=== PATIENT | male | born 1945 | race Caucasian/White ===

== ENCOUNTER → 2016-12-27 | Outpatient (CLI) | payer BC ==
[~2016-12-27] MED LIST: BIAXIN PO; LORTAB 10/500 T1 TAB PO; RONDEC-DM ORAL30 ML PO
--- NOTE | ~2016-12-27 | MR113 ---
[facility] A Service of [facility] RADIOLOGY TEXT RESULTS PATIENT: LEONEL TAVAREZ LOCATION: [facility] : 41 UNIT #: [id number] AGE: [address]: Yumi Bradley SEX: M ORDER DR: [id number] [address] [address] [id number] MR#: [id number] Acc #: [id number] NAME: LEONEL TAVAREZ : 1945 SEX: M STUDY DATE/TIME: 12/27/2016 12:04 UNIT: [facility] ROOM: STUDY DESCRIPTION: MR Lumbar Wo Contrast Attending Physician: Yumi Bradley M.D. Referring Physician: Yumi Bradley M.D. Ordering Physician: Jose F Clark M.D. Primary Care Physician: Yumi Bradley M.D. MRI CENTER REPORT This report is preliminary unless electronic signature is present. EXAM MRI of the lumbar spine without contrast dated 12/27/2016. COMPARISON Plain films lumbar spine dated 12/18/2016. HISTORY Low back pain since 12/27/2016. Injured while lifting heavy hand. Patient fell on 12/15/2016 with pain in his hips. FINDINGS Multisequence multiplanar imaging of the lumbar spine was obtained without contrast. Edema is associated with L2 fracture. There is about 10% maximal vertebral body height loss. Chronic compression fracture is seen at L5 with maximum vertebral body height loss in the mid to vertebral body with overall decreased height also. There is at least 60-65% maximal compression in the mid aspect. No significant edema is associated with it favoring chronic fracture. There is mild vertebral body height loss at L4 with about 10-20% maximal height loss. No fracture line or edema is seen. There is a developing inferior endplate Schmorl node along the L1 and to a lesser degree L3 vertebral bodies. No retropulsion of fragments are noted into the canal. Conus terminates at L1-2. Signal of conus and cauda equina are within normal limits. Pre and paravertebral soft tissues do not demonstrate any significant abnormality. L1-2: Mild degenerative disc signal loss and minimal bilateral facet change. No canal stenosis or neural foraminal narrowing. L2-3: Mild degenerative disc signal loss and bulge with borderline-sized canal. No significant neural foraminal narrowing. Moderate right and minimal left facet hypertrophic change. L3-4: Concentric disc bulge with severe bilateral facet hypertrophic STS. [facility] A Service of [facility] RADIOLOGY TEXT RESULTS PATIENT: LEONEL TAVAREZ LOCATION: [facility] : 41 UNIT #: [id number] AGE: [address]: Yumi Bradley SEX: M ORDER DR: changes. Ciqm-rd-istyswbh canal stenosis is seen with pbha-uz-loivwlpl bilateral neural foraminal narrowing. L4-5: Disc osteophyte complex with superimposed central protrusion. There might be some mild retropulsion of posterosuperior endplate of compressed L5 with a vertebral body posteriorly. Severe canal stenosis is suspected particularly in the transverse dimension. There is czyq-lz-mkecpity bilateral lateral recess stenosis and moderate bilateral neural foraminal narrowing. L5-S1: Concentric disc bulge with small central protrusion. Severe right and curr-oa-zuwzyafb left facet hypertrophic changes are noted with tiny central protrusion and mild bilateral lateral recess stenosis and moderate to severe bilateral neural foraminal narrowing. Sacrum demonstrates increased T2-signal in S2 segment below and in visualized bilateral iliac bone on sagittal T2 sequence, series 3. It is not well correlated in the sagittal STIR (series 5) and sagittal T1-11 (series 4). Hence it is probably artifactual rather than bone edema related to sacral insufficiency injury or fracture. IMPRESSION 1. There is a L2 vertebral body fracture with bone edema suggestive of an acute to subacute injury. There is about 10% loss of vertebral body height. 2. Chronic compression fractures are noted in the lumbar spine, worse at L5 as described above. 3. Degenerative changes are at multiple levels, relatively worse at L4-5 with severe canal stenosis. Severe bilateral facet hypertrophic changes with bilateral lateral recess and neural foraminal stenosis are noted. 4. In sagittal T2 sequences (series 3), there is increased T2 signal noted in the sacrum and iliac bones bilaterally. As it is not correlated in the other sagittal sequences, it is probably artifactual rather than insufficiency fractures. 1. Dictated by... Myke Mckeon M.D. THIS IS AN ELECTRONICALLY VERIFIED REPORT Myke Mckeon M.D. at 12/28/2016 3:41 PM CPR/bd TD: 12/28/2016 12:08 JOB #: [id number] MRI CENTER REPORT Page 1 of 1
== END | disposition home or self-care (01) ==
LOC: SMRI 11:00
DX: S32.020D Wedge compression fracture of second lumbar vertebra, subsequent encounter for fracture with routine healing (principal); M48.06 Spinal stenosis, lumbar region; M51.36 Other intervertebral disc degeneration, lumbar region
CPT/HCPCS: 72148